=== PATIENT | female | born 1980 | race Two or more races ===

== ENCOUNTER 2022-12-30 20:06 | Emergency (ER) | payer BC ==
[~2022-12-30] VITALS: Ht 162.6 cm; Wt 104.3 kg
[2022-12-30] MEDS ORDERED: LEVOTHYROXINE100 MCG PO (21:09)
[2022-12-30] MEDS ORDERED: CITALOPRAM HBR40 MG PO (21:09)
== END 2022-12-30 21:52 | disposition home or self-care (01) ==
LOC: ER 20:06
DX: S01.82XA Laceration with foreign body of other part of head, initial encounter (principal); V00.831A Fall from motorized mobility scooter, initial encounter; Y93.I9 Activity, other involving external motion; Y92.413 State road as the place of occurrence of the external cause; E03.9 Hypothyroidism, unspecified